=== PATIENT | male | born 1980 | race Caucasian/White ===

== ENCOUNTER → 2020-08-20 | Outpatient (CLI) | payer BC | LOC: KOH-I 16:24 | DX: B34.9 Viral infection, unspecified (principal); J84.9 Interstitial pulmonary disease, unspecified; R91.8 Other nonspecific abnormal finding of lung field; R91.1 Solitary pulmonary nodule | CPT/HCPCS: 71046 ==

== ENCOUNTER → 2020-08-30 | Outpatient (CLI) | payer BC | LOC: CT 13:30 | DX: R91.1 Solitary pulmonary nodule (principal) | CPT/HCPCS: 71250 ==

== ENCOUNTER → 2020-11-10 | Outpatient (CLI) | payer BC | LOC: EXRD 10:12 | DX: R91.1 Solitary pulmonary nodule (principal) | CPT/HCPCS: 71046 ==